=== PATIENT | male | born 1995 | race Two or more races ===

== ENCOUNTER 2018-02-23 21:26 | Emergency (ER) | payer OTHER ==
[2018-02-23 21:56] VITALS: BP 124/66
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
== END 2018-02-23 22:40 | disposition home or self-care (01) ==
DX: S80.211A Abrasion, right knee, initial encounter (principal); K64.9 Unspecified hemorrhoids; R29.810 Facial weakness; V29.3XXA Motorcycle rider (driver) (passenger) injured in unspecified nontraffic accident, initial encounter; Y92.9 Unspecified place or not applicable; Y93.9 Activity, unspecified; Y99.9 Unspecified external cause status

== ENCOUNTER 2018-04-30 16:12 | Emergency (ER) | payer OTHER ==
[2018-04-30] MEDS ORDERED: ONDANSETRON 4 MG/2 ML VIAL IVP ONE (18:37)
[2018-04-30] MEDS ORDERED: KETOROLAC 30 MG/1 ML SDV IVP ONE (18:37)
[2018-04-30] MEDS ORDERED: NS 1,000 ML IV ONE (18:37)
[2018-04-30 18:43] LABS: PLATELET COUNT 278 10^3/uL (150-400)
--- NOTE | 2018-04-30 18:47 | EDPHY ---
H & P Stated Complaint: Bilat UQ pain x3H, intermittent, no vomiting. Time Seen by Provider: 04/30/18 18:33 HPI/ROS: CHIEF COMPLAINT: Right upper quadrant pain HISTORY OF PRESENT ILLNESS: Patient is a 22-year-old man who comes to the emergency department complaining of right upper quadrant abdominal pain for the last 5 hr. Nausea but no vomiting. No fever. No lower abdominal pain. He states that it began right after he took several nutritional supplements which she normally takes for body building. No drug or alcohol use. No diarrhea. No history of the same. No history of surgery. Severity: Moderate Modifying factors: None REVIEW OF SYSTEMS: Constitutional: denies: chills, fever, recent illness, recent injury EENTM: denies: blurred vision, double vision, nose congestion Respiratory: denies: cough, shortness of breath Cardiac: denies: chest pain, irregular heart rate, lightheadedness, palpitations Gastrointestinal/Abdominal: See HPI Genitourinary: denies: dysuria, frequency, hematuria, pain Musculoskeletal: denies: joint pain, muscle pain Skin: denies: lesions, rash, jaundice, bruising Neurological: denies: headache, numbness, paresthesia, tingling, dizziness, weakness Hematologic/Lymphatic: denies: blood clots, easy bleeding, easy bruising Immunologic/allergic: denies: HIV/AIDS, transplant 10 systems reviewed and negative except as noted EXAM: GENERAL: Well-appearing, well-nourished and in no acute distress. HEAD: Atraumatic, normocephalic. EYES: Pupils equal round and reactive to light, extraocular movements intact, sclera anicteric, conjunctiva are normal. ENT: TMs normal, nares patent, oropharynx clear without exudates. Moist mucous membranes. NECK: Normal range of motion, supple without lymphadenopathy or JVD. LUNGS: Breath sounds clear to auscultation bilaterally and equal. No wheezes rales or rhonchi. HEART: Regular rate and rhythm without murmurs, rubs or gallops. ABDOMEN: Soft, nontender, normoactive bowel sounds. No guarding, no rebound. No masses appreciated. BACK: No CVA tenderness, no spinal tenderness, step-offs or deformities EXTREMITIES: Normal range of motion, no pitting or edema. No clubbing or cyanosis. NEUROLOGICAL: Cranial nerves II through XII grossly intact. Normal speech, normal gait. 5/5 strength, normal movement in all extremities, normal sensation , normal reflexes PSYCH: Normal mood, normal affect. SKIN: Warm, dry, normal turgor, no visible rashes or lesions. Source: Patient Exam Limitations: No limitations - Personal History Current Tetanus/Diphtheria Vaccine: Yes - Medical/Surgical History Hx Asthma: No Hx Chronic Respiratory Disease: No Hx Diabetes: No Hx Cardiac Disease: No Hx Renal Disease: No Hx Cirrhosis: No Hx Alcoholism: No Hx HIV/AIDS: No Hx Splenectomy or Spleen Trauma: No Other PMH: none - Family History Significant Family History: No pertinent family hx - Social History Smoking Status: Never smoked Alcohol Use: Sober Drug Use: None Constitutional: Initial Vital Signs Temperature (C) 36.4 C 04/30/18 16:16 Heart Rate 71 04/30/18 16:16 Respiratory Rate 16 04/30/18 16:16 Blood Pressure 120/44 L 04/30/18 16:16 O2 Sat (%) 96 04/30/18 16:16 O2 Delivery Mode Room Air Allergies/Adverse Reactions: No Known Allergies Allergy (Verified 04/30/18 16:16) Home Medications: Medication Instructions Recorded Ondansetron Odt [Zofran Odt 4 mg 4 mg PO Q4 PRN #20 tab 04/30/18 (RX)] Medical Decision Making - Diagnostics Imaging Results: Imaging Impressions Abdomen Ultrasound 04/30/18 18:38 Impression: 1. No acute findings. 2. Borderline enlarged fatty liver. Findings discussed with BRITTON ROSARIO 04/30/2018 at 19:54. Imaging: Discussed imaging studies w/ call center coordinator Radiologist ED Course/Re-evaluation: 8:00 p.m. We discussed the lab and ultrasound results. Patient is feeling much better. He is ready to go home. I will give him a take-home Zofran as well as a prescription. He feels reassured by this. We discussed indications for returning. Differential Diagnosis: Partial list of the Differential diagnosis considered include but were not limited to; nausea, biliary disease, gastroenteritis and although unlikely based on the history and physical exam, I also considered hepatitis, appendicitis, kidney stone, urinary tract infection. I discussed these differential diagnoses and the plan with the patient as well as the usual and expected course. The patient understands that the diagnosis is provisional and that in medicine we are not always correct and that further workup is often warranted. Usual and customary warnings were given. All of the patient's questions were answered. The patient was instructed to return to the emergency department should the symptoms at all worsen or return, otherwise to followup with the physician as we discussed. - Data Points Laboratory Results: Laboratory Results 04/30/18 17:45 04/30/18 17:45 04/30/18 04/30/18 04/30/18 19:00 17:45 17:45 WBC 11.79 10^3/uL H 10^3/uL (3.80-9.50) RBC 6.79 10^6/uL H 10^6/uL (4.40-6.38) Hgb 14.3 g/dL g/dL (13.7-17.5) Hct 44.7 % % (40.0-51.0) MCV 65.8 fL L fL (81.5-99.8) MCH 21.1 pg L pg (27.9-34.1) MCHC 32.0 g/dL L g/dL (32.4-36.7) RDW 17.2 % H % (11.5-15.2) Plt Count 278 10^3/uL 10^3/uL (150-400) MPV 9.6 fL fL (8.7-11.7) Neut % (Auto) 81.7 % H % (39.3-74.2) Lymph % (Auto) 11.5 % L % (15.0-45.0) [place] % (Auto) 5.6 % % (4.5-13.0) Eos % (Auto) 0.6 % % (0.6-7.6) Baso % (Auto) 0.3 % % (0.3-1.7) Nucleat RBC Rel Count 0.0 % % (0.0-0.2) Absolute Neuts (auto) 9.64 10^3/uL H 10^3/uL (1.70-6.50) Absolute Lymphs (auto) 1.35 10^3/uL 10^3/uL (1.00-3.00) Absolute Monos (auto) 0.66 10^3/uL 10^3/uL (0.30-0.80) Absolute Eos (auto) 0.07 10^3/uL 10^3/uL (0.03-0.40) Absolute Basos (auto) 0.03 10^3/uL 10^3/uL (0.02-0.10) Absolute Nucleated RBC 0.00 10^3/uL 10^3/uL (0-0.01) Immature Gran % 0.3 % % (0.0-1.1) Immature Gran # 0.04 10^3/uL 10^3/uL (0.00-0.10) Platelet Estimate ADEQUATE (ADEQ) Polychromasia 1+ H Microcytic Cells 1+ H Smear Review By Pending Sodium 135 mEq/L mEq/L (135-145) Potassium 4.5 mEq/L mEq/L (3.5-5.2) Chloride 102 mEq/L mEq/L (97-110) Carbon Dioxide 24 mEq/l mEq/l (22-31) Anion Gap 9 mEq/L mEq/L (6-14) BUN 25 mg/dL H mg/dL (7-23) Creatinine 1.0 mg/dL mg/dL (0.7-1.3) Estimated GFR > 60 Glucose 86 mg/dL mg/dL (70-100) Calcium 9.6 mg/dL mg/dL (8.5-10.4) Total Bilirubin 1.1 mg/dL mg/dL (0.1-1.4) Conjugated Bilirubin 0.3 mg/dL mg/dL (0.0-0.5) Unconjugated Bilirubin 0.8 mg/dL mg/dL (0.0-1.1) AST 37 IU/L IU/L (17-59) ALT 48 IU/L IU/L (21-72) Alkaline Phosphatase 137 IU/L H IU/L (38-126) Total Protein 7.7 g/dL g/dL (6.3-8.2) Albumin 4.6 g/dL g/dL (3.5-5.0) Lipase 332 IU/L H IU/L (23-300) Urine Color YELLOW Urine Appearance HAZY Urine pH 5.0 (5.0-7.5) Ur Specific [place] 1.024 (1.002-1.030) Urine Protein NEGATIVE (NEGATIVE) Urine Ketones NEGATIVE (NEGATIVE) Urine Blood NEGATIVE (NEGATIVE) Urine Nitrate NEGATIVE (NEGATIVE) Urine Bilirubin NEGATIVE (NEGATIVE) Urine Urobilinogen NEGATIVE EU EU (0.2-1.0) Ur Leukocyte Esterase NEGATIVE (NEGATIVE) Urine RBC 1-3 /hpf /hpf (0-3) Urine WBC 1-3 /hpf /hpf (0-3) Ur Epithelial Cells NONE SEEN /lpf /lpf (NONE-1+) Urine Glucose NEGATIVE (NEGATIVE) Medications Given: Discontinued Medications Sodium Chloride (Ns) 1,000 mls @ 0 mls/hr IV EDNOW ONE; Wide Open PRN Reason: Protocol Stop: 04/30/18 18:38 Last Admin: 04/30/18 18:55 Dose: 1,000 mls Ketorolac Tromethamine (Toradol) 15 mg IVP EDNOW ONE Stop: 04/30/18 18:38 Last Admin: 04/30/18 18:58 Dose: 15 mg Ondansetron HCl (Zofran) 4 mg IVP EDNOW ONE Stop: 04/30/18 18:38 Last Admin: 04/30/18 18:55 Dose: 4 mg Ondansetron HCl (Zofran Odt 4 Mg Prepack#2) 1 btl TAKEHOME EDNOW ONE Stop: 04/30/18 20:01 Last Admin: 04/30/18 20:08 Dose: 1 btl Departure - Departure Disposition: Home, Routine, Self-Care Clinical Impression: Nausea Abdominal pain Qualifiers: Abdominal location: right upper quadrant Qualified Code(s): R10.11 - Right upper quadrant pain Condition: Fair Instructions: Ondansetron (By mouth), Acute Nausea and Vomiting (ED), Acute Abdominal Pain (ED) Referrals: NONE *PRIMARY CARE P,. [Primary Care Provider] - As per Instructions [facility] [Cl[facility]] - 2-3 days, if not improved Prescriptions: Ondansetron Odt [Zofran Odt 4 mg (RX)] 4 mg PO Q4 PRN #20 tab PRN Reason: Nausea & Vomiting
[2018-04-30 19:03] VITALS: BP 112/50
[2018-04-30] MEDS ORDERED: ONDANSETRON 4MG PREPACK#2 BTL TAKEHOME ONE (20:00)
== END 2018-04-30 20:20 | disposition home or self-care (01) ==
DX: R10.11 Right upper quadrant pain (principal); R11.0 Nausea; E86.9 Volume depletion, unspecified
CPT/HCPCS: 96374; J1885; J2405

== ENCOUNTER 2018-05-27 21:59 | Emergency (ER) | payer OTHER ==
[2018-05-27 22:12] VITALS: BP 123/62
--- NOTE | 2018-05-27 22:49 | EDPHY ---
H & P Time Seen by Provider: 05/27/18 22:35 HPI/ROS: HPI My lips are burning. Concerned about herpes. 22-year-old male by private vehicle. He is a student [employer]. He presents to the emergency department complaining of burning left lower and upper lips. He is concerned he may have contracted herpes. He states that he has been seen a new curl. He also tells me that when he shaves he has his same sensation of burning on his lips and he has recently shaved. He denies any other symptoms or complaints. ROS: Constitutional: No fever, no chills. No weakness. Eyes: No discharge. No changes in vision. ENT: No sore throat. No nasal congestion or rhinorrhea. As above. Genitourinary: No hematuria. No dysuria or increased frequency with urination. No discharge. Musculoskeletal: No neck pain. No myalgias or arthralgias. Skin: No rashes. Neurological: No headache. No focal weakness or altered sensation. Past medical history: No significant past medical history. Social history: Nonsmoker. No alcohol. He is a student at [employer]. Physical Exam: General Appearance: Alert, no distress. This patient is responding to questions appropriately and in full sentences. This patient appears well- hydrated and well-nourished. Eyes: Pupils equal and round no pallor or injection. No lid edema, erythema or injection. ENT, Mouth: Mucous membranes are moist. The pharyngeal tissues are unremarkable. No edema or swelling. No asymmetry suggestive of abscess. No erythema or exudates. I examined his lips carefully and his oral mucosa carefully in good light. No evidence of vesicular lesions or other lesions. Respiratory: There are no retractions, lungs are clear to auscultation with good air movement bilaterally. Cardiovascular: Regular rate and rhythm. No murmur. Neurological: Motor sensory function is grossly intact. Cranial nerves are normal. Gait is normal. Skin: Warm and dry, no rashes. Musculoskeletal: Neck is supple and nontender. No cervical, submandibular, submental lymphadenopathy. Extremities are symmetrical. All joints range without pain or impingement. Psychiatric: No agitation. No depression. Database: EKG: Imaging: Procedures: Emergency department course: Triage vital signs reviewed and are normal. I do not appreciate any significant findings on this patient's physical exam as noted above. I feel that oral herpes is unlikely. No evidence of aphthous ulcers or other lesions. He feels comfortable going home and I feel he is safe for discharge. I will have him follow up at the [facility] tomorrow for re-evaluation. He feels comfortable with this plan. Return to emergency department precautions were reviewed with him. All of his questions were answered. He was discharged from the emergency department in good condition. Differential Diagnosis: The differential diagnosis on this patient includes but is not limited to concerned about herpes infection. Oral aphthous ulcers, herpetic infection, serious bacterial infection unlikely. This represents a partial list of diagnoses considered. These considerations are based on history, physical exam , past history, reassessment and diagnostic testing. Smoking Status: Never smoked Constitutional: Initial Vital Signs Temperature (C) 37.1 C 05/27/18 22:10 Heart Rate 80 05/27/18 22:10 Respiratory Rate 16 05/27/18 22:10 Blood Pressure 123/62 H 05/27/18 22:10 O2 Sat (%) 97 05/27/18 22:10 O2 Delivery Mode Room Air Allergies/Adverse Reactions: No Known Allergies Allergy (Verified 04/30/18 16:16) Home Medications: Medication Instructions Recorded NK [No Known Home Meds] 05/27/18 Departure - Departure Disposition: Home, Routine, Self-Care Clinical Impression: Sore lips Condition: Good Instructions: Oral Herpes Simplex Virus Infections (ED) Additional Instructions: Read and follow provided instructions. Follow-up with the [facility] tomorrow as discussed to have your mouth re-examined again. Return to the emergency department for worsening symptoms or other serious concerns. Referrals: [facility],. [Clinic] - As per Instructions
== END 2018-05-27 22:57 | disposition home or self-care (01) ==
DX: R52 Pain, unspecified (principal)

== ENCOUNTER 2018-06-11 14:12 | Emergency (ER) | payer OTHER ==
[2018-06-11 14:17] VITALS: BP 128/82
--- NOTE | 2018-06-11 14:49 | EDPHY ---
H & P Time Seen by Provider: 06/11/18 14:25 HPI/ROS: CHIEF COMPLAINT: Concerns over herpes labialis HISTORY OF PRESENT ILLNESS: 22-year-old immunocompetent male seen emergency department approximately 1 week ago for concerns over herpes labialis as he was complaining of "burning lips". 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 He denies lesions currently to his lips or to his genitalia. PHYSICAL EXAM (Prior to examination, patient consented to physical exam, hands were washed and my usual and customary physical exam procedures followed) 1) GENERAL: Well-developed, well-nourished, alert and oriented. Appears to be in no acute distress. 2) HEAD: Normocephalic 3) HEENT: sclera anicteric 4) LUNGS: Breathing comfortably. 5) SKIN: ] [ On the patient's face that do not identify or appreciate any lesions, no tenderness, no discoloration, no vesicles . No intraoral lesions] Smoking Status: Never smoked Constitutional: Initial Vital Signs Temperature (C) 37 C 06/11/18 14:14 Heart Rate 81 06/11/18 14:14 Respiratory Rate 16 06/11/18 14:14 Blood Pressure 128/82 H 06/11/18 14:14 O2 Sat (%) 97 06/11/18 14:14 O2 Delivery Mode Room Air Allergies/Adverse Reactions: No Known Allergies Allergy (Verified 04/30/18 16:16) Home Medications: Medication Instructions Recorded valACYclovir [Valtrex (*)] 500 mg PO BID 3 Days tab 06/11/18 MDM/Departure - [facility] ED Course/Re-evaluation: The patient and I discussed his outpatient laboratory study which is positive for HSV 1. We discussed treatment of herpes labialis, we discussed herpes, we discussed possibility of shutting virus without being symptomatic. At this time I do not appreciate any lesions to his lips states is asymptomatic. I have prescribed him Valtrex to be taken for recurrent herpes labialis to be taken at 1st sign of any lesions. He feels comfortable with this plan. Care of patient under supervision of primary supervising physician Dr Sands . - Depart Disposition: Home, Routine, Self-Care Clinical Impression: Herpes labialis Condition: Good Instructions: Oral Herpes Simplex Virus Infections (ED) Additional Instructions: At the 1st sign of a herpes outbreak start taking the medication. Prescriptions: valACYclovir [Valtrex (*)] 500 mg PO BID 3 Days tab Referrals: [facility]. [Clinic] - 5-7 days, call for appt.
== END 2018-06-11 15:00 | disposition home or self-care (01) ==
DX: B00.1 Herpesviral vesicular dermatitis (principal)